=== PATIENT | female | born 1940 | race Caucasian/White ===

== ENCOUNTER 2016-08-04 15:51 | Outpatient (CLI) | payer MEDICARE, OTHER | END 2016-08-04 15:52 | disposition short-term general hospital (02) | LOC: EMS 15:51 | PROVIDERS: ATTEND Surgery | DX: R55 Syncope and collapse (principal); R19.5 Other fecal abnormalities; R53.1 Weakness | CPT/HCPCS: A0425; A0427; A0888 ==

== ENCOUNTER 2019-10-04 14:44 | Outpatient (CLI) | payer MEDICARE, OTHER | END 2019-10-04 14:45 | disposition home or self-care (01) | LOC: LAB 14:44 | PROVIDERS: ATTEND Internal Medicine Nephrology | DX: Z11.59 Encounter for screening for other viral diseases (principal) ==

== ENCOUNTER 2020-05-30 22:31 | Outpatient (CLI) | payer MEDICARE, OTHER | END 2020-05-30 23:59 | disposition short-term general hospital (02) | LOC: EMS 22:31 | DX: R06.02 Shortness of breath (principal) | CPT/HCPCS: A0425; A0429 ==

== ENCOUNTER 2020-12-12 23:31 | Outpatient (CLI) | payer MEDICARE, OTHER | END 2020-12-12 23:32 | disposition short-term general hospital (02) | LOC: EMS 23:31 | DX: R06.02 Shortness of breath (principal); R42 Dizziness and giddiness; I47.1 Supraventricular tachycardia | CPT/HCPCS: A0425; A0427 ==

== ENCOUNTER 2021-02-05 15:10 | Outpatient (CLI) | payer MEDICARE, OTHER | END 2021-02-05 15:11 | disposition critical access hospital (66) | LOC: EMS 15:10 | DX: M54.9 Dorsalgia, unspecified (principal); I47.1 Supraventricular tachycardia | CPT/HCPCS: A0425; A0427 ==

== ENCOUNTER 2021-02-05 15:25 | Emergency (ER) | payer MEDICARE, OTHER ==
--- NOTE | 2021-02-05 16:07 | XRAY Report ---
PROCEDURE: Chest 1 View X-Ray INDICATIONS: chest pain TECHNIQUE: One view of the chest was acquired. COMPARISON: 08/06/2011 FINDINGS: Surgical changes and devices: None. Lungs and pleura: No pleural effusions or pneumothorax. There are diffuse bilateral airspace opac ities likely chronic. Mediastinum: Mediastinal contours appear normal. Heart size is normal. The aorta is tortuous. The s tudy is rotated. Bones and chest wall: No suspicious bony lesions. Overlying soft tissues appear unremarkable. IMPRESSION: 1. No acute cardiopulmonary abnormality. 2. The study is rotated. Reviewed by: Francisco Abbott on 02/05/2021 4:06 PM [facility] Approved by: Francisco Abbott on 02/05/2021 4:06 PM [facility] Station ID: [id number]
--- NOTE | 2021-02-05 16:21 | ED Physician Documentation ---
History of Present Illness - Stated complaint Stated Complaint: SVT - Chief complaint Chief Complaint: Cardiac - History obtained from History obtained from: Patient, EMS - History of Present Illness Timing: Today - Additonal information Additional information: 80-year-old female with 3 times per week dialysis called medics with low back pain and was transported the hospital with a heart rate of 165 [address] route she was given adenosine and converted. She has recently been seen at [facility] where she was hospitalized for 11 days in an attempt to figure out why her back is hurting her so bad. 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 Review of Systems Constitutional: denies: Fever Nose: denies: Congestion Throat: denies: Sore throat Cardiac: reports: Palpitations. 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 HEENT: Tonsil/Adenoidectomy - Present Medications Home Medications: Ambulatory Orders Medication Instructions Recorded Confirmed Calcium Carbonate [Tums] 500 mg PO AC 10/12/12 10/12/12 Carvedilol 12.5 mg PO DAILY 10/12/12 10/12/12 Carvedilol 25 mg PO DAILY 10/12/12 10/12/12 Estrogens, Conjugated [Premarin] 1.25 mg PO DAILY 10/12/12 10/12/12 Folic Acid 3 mg PO DAILY 10/12/12 10/12/12 Furosemide [Lasix] 40 mg PO DAILY 10/12/12 10/12/12 Levothyroxine Sodium [Tirosint] 150 mcg PO DAILY 10/12/12 10/12/12 Lovastatin [Mevacor] 20 mg PO DAILY 10/12/12 10/12/12 Sevelamer Carbonate [Renvela] 800 mg PO AC 10/12/12 10/12/12 amLODIPine [Norvasc] 10 mg PO DAILY 10/12/12 10/12/12 oxyCODONE [Roxicodone] 5 mg PO Q6-8H PRN 10/12/12 10/12/12 - Allergies Allergies/Adverse Reactions: Allergies Allergy/AdvReac Type Severity Reaction Status Date / Time amoxicillin [Amoxicillin] Allergy Severe Edema Verified 10/12/12 08:35 amoxicillin trihydrate * Allergy Severe Edema Verified 10/12/12 08:34 [From Augmentin] potassium clavulanate * Allergy Unknown unknown Unverified 10/12/12 08:38 [From Augmentin] Sulfa (Sulfonamide Allergy Unknown unknown Unverified 10/12/12 08:38 Antibiotics) celecoxib [From Celebrex] AdvReac Severe Bleeding Verified 10/12/12 08:35 PD ED PE NORMAL - Vitals Vital signs reviewed: Yes (Normal) - General General: Alert and oriented X 3, No acute distress, Well developed/nourished - HEENT HEENT: Atraumatic, PERRL, EOMI - Neck Neck: Supple, no meningeal sign, No bony TTP - Cardiac Cardiac: RRR, No murmur - Respiratory Respiratory: No respiratory distress, Clear bilaterally - Abdomen Abdomen: Soft, Non tender - Back Back: No CVA TTP, Other (The back is examined there is no evidence of erythema the spine is palpated directly in the area where she has had her biopsy was not specifically tender. She does have some mild tenderness across the lower lumbar spine all the way across. Not midline bony tenderness.) - Derm Derm: Normal color, Warm and dry, No rash - Extremities Extremities: Other (Both feet are bandaged from recent amputation.) - Neuro Neuro: Alert and oriented X 3, water tender 2-12 intact, No motor deficit, No sensory deficit, Normal speech Eye Opening: Spontaneous Motor: Obeys Commands Verbal: Oriented GCS Score: 15 - Psych Psych: Normal mood, Normal affect Results - Vitals Vitals: Vital Signs - 24 hr 02/05/21 02/05/21 02/05/21 15:25 15:34 17:50 Heart Rate 97 96 93 Respiratory 97 H 18 18 Rate Blood Pressure 114/64 114/64 128/64 O2 Saturation 100 96 Oxygen O2 Source Room air - EKG (time done) 1531 Rate: Rate (enter#) (97) Intervals: Prolonged QT, Wide QRS (borderline) Ischemia: Normal ST segments Compare to prior EKG: Old EKG unavailable Computer interpretation: Disagree with computer (I do not see ST elevation in the inferior leads) - Labs Labs: Laboratory Tests 02/05/21 02/05/21 02/05/21 16:15 16:15 16:15 WBC 12.8 H RBC 3.88 L Hgb 11.3 L Hct 36.4 L MCV 93.8 MCH 29.1 MCHC 31.0 L RDW 16.2 H Plt Count 392 MPV 9.8 Neut # (Auto) 11.0 H Lymph # (Auto) 0.6 L [place] # (Auto) 0.9 Eos # (Auto) 0.1 Baso # (Auto) 0.1 Absolute Nucleated RBC 0.00 Nucleated RBC % 0.0 Sodium 142 Potassium 4.3 Chloride 98 L Carbon Dioxide 29 Anion Gap 15.0 H BUN 25 H Creatinine 3.3 H Estimated GFR (MDRD) 13 L Glucose 135 H Calcium 9.1 Total Bilirubin 0.4 AST 26 ALT 13 Alkaline Phosphatase 188 H Troponin I High Sens 22.2 H* Total Protein 7.2 Albumin 3.1 L Globulin 4.1 Albumin/Globulin Ratio 0.8 L Lipase 34 - Rads (name of study) chest Radiology: Prelim report reviewed (Impression: 1. No acute cardiopulmonary abnormality. The study is rotated.), EMP read indepedently, See rad report lumbar spine Radiology: Prelim report reviewed (Impression: Essentially nondiagnostic exa mination secondary to body habitus, decreased bone mineralization and discogenic changes.), EMP read indepedently, See rad report PD MEDICAL DECISION MAKING - ED course Complexity details: reviewed results, re-evaluated patient, considered differential, d/w patient ED course: 80-year-old patient on hemodialysis for the past 12 years has had an episode of SVT today which presented as lightheadedness when she attempted to get up to walk. She felt that she would collapse. She had an increase in her back pain associated with this. She felt that this may be related to a new pain medication she has been taking and she had taken her first dose today. This occurred some 6 hours after her dose. She was converted in the field with 6 mg of adenosine and feels back to normal. She continues to have back pain. Departure - Departure Disposition: 01 Home, Self Care Clinical Impression: SVT (supraventricular tachycardia) Condition: Stable Instructions: ED Tachycardia Pat PSVT Follow-Up: Lucila Pereira MD [Primary Care Provider] - Comments: Barbra, today you had a supraventricular tachycardia or SVT. This is a very rapid heart rate that can cause problems if left untreated. If you develop the symptoms again with feeling of lightheadedness and near syncope call the ambulance. We were unable to image your back adequately today and my recommendation is that if you have increased back pain or or development of new symptoms to follow-up with your doctors at [facility]. If you feel that your SVT was a result of this new medication return to using your oxycodone.
[2021-02-05 16:22] LABS: BASOPHILS # (AUTO) 0.1 10^3/uL (0.0-0.1); BASOPHILS % (AUTO) 0.9 %; EOSINOPHILS # (AUTO) 0.1 10^3/uL (0.0-0.7); EOSINOPHILS % (AUTO) 0.7 %; HCT - HEMATOCRIT 36.4 % (37.0-47.0); HGB - HEMOGLOBIN 11.3 g/dL (12.0-16.0); LYMPHOCYTES # (AUTO) 0.6 10^3/uL (1.5-3.5); MEAN CORPUSCULAR HEMOGLOBIN 29.1 pg (27.0-31.0); MEAN CORPUSCULAR VOLUME 93.8 fL (81.0-99.0); MEAN PLATELET VOLUME 9.8 fL (7.9-10.8); MONOCYTES # (AUTO) 0.9 10^3/uL (0.0-1.0); MONOCYTES % (AUTO) 6.9 %; PLT - PLATELET COUNT 392 10^3/uL (130-450); RED BLOOD COUNT 3.88 10^6/uL (4.20-5.40); RED CELL DISTRIBUTION WIDTH 16.2 % (12.0-15.0); WHITE BLOOD COUNT 12.8 x10^3/uL (4.8-10.8)
[2021-02-05 16:36] LABS: ALBUMIN 3.1 g/dL (3.2-5.5); ALBUMIN/GLOBULIN RATIO 0.8 (1.0-2.2); BILIRUBIN,TOTAL 0.4 mg/dL (0.2-1.0); CALCIUM 9.1 mg/dL (8.5-10.3); CREATININE 3.3 mg/dL (0.4-1.0); POTASSIUM 4.3 mmol/L (3.5-5.0); TOTAL PROTEIN 7.2 g/dL (6.7-8.2)
[2021-02-05 17:51] VITALS: BP 128/64
--- NOTE | 2021-02-05 18:55 | XRAY Report ---
PROCEDURE: Lumbar Spine 2 View INDICATIONS: increased low back pain severe TECHNIQUE: 2 views of the lumbar spine were acquired. COMPARISON: None. FINDINGS: Spine not well visualized secondary to body habitus and diffuse osteopenia. Diffuse, severe thoracic and lumbar spondylosis and facet arthropathy. Cannot exclude fracture. IMPRESSION: Essentially nondiagnostic examination secondary to body habitus, decreased bone mineralization and di scogenic changes. Reviewed by: Alfonso Georges MD on 02/05/2021 6:54 PM PST Approved by: Alfonso Georges MD on 02/05/2021 6:54 PM PST Station ID: [id number]
== END 2021-02-05 19:25 | disposition home or self-care (01) ==
LOC: EDUNIT# → ED 15:25
DX: I47.1 Supraventricular tachycardia (principal); M54.50 Low back pain, unspecified; I10 Essential (primary) hypertension; E03.9 Hypothyroidism, unspecified; N28.9 Disorder of kidney and ureter, unspecified; F40.240 Claustrophobia; Z79.899 Other long term (current) drug therapy; Z89.429 Acquired absence of other toe(s), unspecified side
CPT/HCPCS: 36415; 80053; 83690; 84484; 85025; 93005; 99284

== ENCOUNTER 2021-07-14 20:54 | Outpatient (CLI) | payer MEDICARE, OTHER | END 2021-07-14 20:55 | disposition short-term general hospital (02) | LOC: EMS 20:54 | DX: R58 Hemorrhage, not elsewhere classified (principal); L89.319 Pressure ulcer of right buttock, unspecified stage; R42 Dizziness and giddiness; Z79.01 Long term (current) use of anticoagulants | CPT/HCPCS: A0425; A0429 ==

== ENCOUNTER 2021-08-08 12:24 | Outpatient (CLI) | payer MEDICARE, OTHER | END 2021-08-08 12:25 | disposition EMS.NT | LOC: EMS 12:24 | DX: R52 Pain, unspecified (principal) ==

== ENCOUNTER 2021-09-10 16:38 | Outpatient (CLI) | payer MEDICARE, OTHER | END 2021-09-10 16:39 | disposition critical access hospital (66) | LOC: EMS 16:38 | DX: R53.1 Weakness (principal); R29.6 Repeated falls; Z59.89 Other problems related to housing and economic circumstances | CPT/HCPCS: A0425; A0429 ==

== ENCOUNTER 2021-09-10 16:55 | Emergency (ER) | payer MEDICARE, OTHER ==
[2021-09-10 17:25] LABS: BASOPHILS # (AUTO) 0.1 10^3/uL (0.0-0.1); BASOPHILS % (AUTO) 0.8 %; EOSINOPHILS # (AUTO) 0.1 10^3/uL (0.0-0.7); EOSINOPHILS % (AUTO) 0.7 %; HCT - HEMATOCRIT 29.9 % (37.0-47.0); HGB - HEMOGLOBIN 10.1 g/dL (12.0-16.0); LYMPHOCYTES # (AUTO) 0.8 10^3/uL (1.5-3.5); MEAN CORPUSCULAR HEMOGLOBIN 32.9 pg (27.0-31.0); MEAN CORPUSCULAR HGB CONC 33.8 g/dL (32.0-36.0); MEAN CORPUSCULAR VOLUME 97.4 fL (81.0-99.0); MEAN PLATELET VOLUME 9.1 fL (7.9-10.8); MONOCYTES # (AUTO) 0.8 10^3/uL (0.0-1.0); MONOCYTES % (AUTO) 7.8 %; NEUTROPHILS # (AUTO) 8.4 10^3/uL (1.5-6.6); NEUTROPHILS % (AUTO) 82.4 %; PLT - PLATELET COUNT 455 10^3/uL (130-450); RED BLOOD COUNT 3.07 10^6/uL (4.20-5.40); RED CELL DISTRIBUTION WIDTH 15.9 % (12.0-15.0); WHITE BLOOD COUNT 10.2 x10^3/uL (4.8-10.8)
[2021-09-10 17:37] LABS: ALBUMIN 2.2 g/dL (3.2-5.5); ALBUMIN/GLOBULIN RATIO 0.6 (1.0-2.2); BILIRUBIN,TOTAL 0.5 mg/dL (0.2-1.0); CALCIUM 8.4 mg/dL (8.5-10.3); CREATININE 2.7 mg/dL (0.4-1.0); POTASSIUM 2.9 mmol/L (3.5-5.0); TOTAL PROTEIN 6.2 g/dL (6.7-8.2)
--- NOTE | 2021-09-10 17:50 | XRAY Report ---
PROCEDURE: Chest 1 View X-Ray INDICATIONS: GEN WEAKNESS, SYNCOPE TECHNIQUE: One view of the chest was acquired. COMPARISON: Chest radiographs 02/05/2021 FINDINGS: Surgical changes and devices: None. Lungs and pleura: No pleural effusions or pneumothorax. Lungs are clear. Mediastinum: Mediastinal contours appear normal. Heart size is normal. Bones and chest wall: No suspicious bony lesions. Overlying soft tissues appear unremarkable. Dawna re degenerative changes are seen in the shoulders. IMPRESSION: No acute cardiopulmonary abnormality. Reviewed by: Nabil Parks MD on 09/10/2021 5:48 PM PDT Approved by: Nabil Parks MD on 09/10/2021 5:48 PM PDT Station ID: [id number]
[2021-09-10] MEDS ORDERED: cefTRIAXone 1 GM in SODIUM CHLORIDE 0.9% MINIBAG 100 ML IV STA (17:53)
[2021-09-10 18:13] LABS: BILIRUBIN,URINE NEGATIVE (NEGATIVE); GLUCOSE, URINE (UA) NEGATIVE (NEGATIVE); KETONES,URINE (UA) NEGATIVE (NEGATIVE); LEUKOCYTE ESTERASE, URINE SMALL (NEGATIVE); NITRITE,URINE NEGATIVE (NEGATIVE); OCCULT BLOOD,URINE NEGATIVE (NEGATIVE); PROTEIN,URINE 30 mg/dL (NEGATIVE); UROBILINOGEN,URINE 0.2 (NORMAL) E.U./dL (NORMAL)
[2021-09-10 18:15] LABS: CLARITY,URINE CLEAR (CLEAR)
--- NOTE | 2021-09-10 18:22 | CT Report ---
PROCEDURE: HEAD WO INDICATIONS: GLF ON ELIQUIS TECHNIQUE: Noncontrast 4.5 mm thick angled axial sections acquired from the foramen magnum to the vertex. For r adiation dose reduction, the following was used: automated exposure control, adjustment of mA and/or kV according to patient size. COMPARISON: None. FINDINGS: Image quality: Excellent. CSF spaces: Basal cisterns are patent. No extra-axial fluid collections. Ventricles are normal in size and shape. Brain: No midline shift. No intracranial masses or hemorrhage. Mild scattered chronic microvascular ischemic changes. Mild sulcal and ventricular prominence is consistent with diffuse age-related cere bral volume loss. Skull and face: Calvarium and visualized facial bones are intact, without suspicious lesions. Sinuses: Mild mucosal thickening in maxillary sinus. The remaining visualized sinuses and mastoids a re clear. IMPRESSION: No acute intracranial abnormality. Reviewed by: Nabil Parks MD on 09/10/2021 6:20 PM PDT Approved by: Nabil Parks MD on 09/10/2021 6:20 PM PDT Station ID: [id number]
[2021-09-10 18:24] LABS: BACTERIA,URINE Few /HPF (None Seen); EPITHELIAL CELLS,UR RARE Transitional /HPF (<= Few); RBC,URINE 0-5 /HPF (0-5); SQUAMOUS EPITHELIAL CELL,UR FEW Squamous (<= Few)
[2021-09-10] MEDS ORDERED: POTASSIUM CHLORIDE 20 MEQ TABLET PO ONE (18:24)
[2021-09-10 18:31] LABS: INR 1.4 (0.8-1.2); PT - PROTHROMBIN TIME 15.4 secs (9.9-12.6)
[2021-09-10 18:39] LABS: PARTIAL THROMBOPLASTIN TIME 37.1 secs (24.9-33.3)
[2021-09-10] MEDS ORDERED: GLYCERIN ADULT SUPP PR STA (18:41)
--- NOTE | 2021-09-10 19:04 | ED Physician Documentation ---
History of Present Illness - Stated complaint Stated Complaint: GLF - Chief complaint Chief Complaint: Neuro - History obtained from History obtained from: Patient - History of Present Illness Timing: Prior to arrival - Additonal information Additional information: 81-year-old female with history of ESRD on Tuesday dialysis, history of Eliquis use, history of chronic foot ulcers being treated by home health care presents by EMS from home for ground-level fall that occurred just prior to arrival. Per EMS the patient has gradually grown more weak over the last few weeks. She was attempting to walk to the bathroom when her legs gave out and she sank to the ground. She was unable to get off the floor and EMS was called. On arrival patient states she feels weak all over. Last dialysis session was yesterday. She states that she cannot walk EMS reported that the home was filthy and living conditions were foul. Review of Systems Constitutional: denies: Fever, Chills, Myalgias, Fatigue, Weight Loss, Sweats, Reviewed and negative, Other Eyes: denies: Loss of vision, Decreased vision, Photophobia, Discharge, Irritation, Reviewed and negative, Other Ears: denies: Loss of hearing, Ear pain, Drainage/discharge, Tinnitus/ringing, Foreign body, Reviewed and negative, Other Nose: denies: Rhinorrhea / runny nose, Congestion, Epistaxis, Sinus pressure / pain, Foreign Body, Reviewed and negative, Other Throat: denies: Dental pain / toothache, Oral lesions / sores, Sore throat, Swollen tonsils, Swallowed foreign body, Reviewed and negative, Other Cardiac: denies: Chest pain / pressure, Palpitations, Pedal edema, Calf pain, Reviewed and negative, Other Respiratory: denies: Dyspnea, Cough, Hemoptysis, Wheezing, Reviewed and negative, Other GI: denies: Abdominal Pain, Abdominal Swelling, Nausea, Vomiting, Constipation, Diarrhea, Hematemesis, Bloody / black stool, Reviewed and negative, Other : denies: Dysuria, Frequency, Hesitancy, Unable to Void, Incontinent, Hematuria, Discharge, LMP, Vaginal bleeding, Irregular menses, Missed period, Now EGA, Control, Hysterectomy, Testicular pain, Testicular mass, Ureña Problem, Reviewed and negative, Other Skin: reports: Rash (Chronic) Neurologic: reports: Generalized weakness. denies: Syncope, Seizure, Confused Psychiatric: denies: Depressed, Suicidal, Homicidal, Hallucinations, Delusions, Anxiety, Insomnia, Reviewed and negative, Other Endocrine: denies: Polydypsia, Polyuria, Polyphagia, Weight loss, Weight gain, Easy bruising / bleeding, Swollen lymph nodes, Reviewed and negative, Other Immunocompromised: denies: Immunocompromised, HIV/AIDS, Asplenic, Chemotherapy, Transplant, Reviewed and negative, Other PD PAST MEDICAL HISTORY - Past Medical History Cardiovascular: Hypertension Respiratory: None Neuro: None Endocrine/Autoimmune: HyPOthyroidism GI: Diverticulitis 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 SPECIALIST: 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 : Renal insuffiency HEENT: None Psych: Claustrophobia Musculoskeletal: Osteoarthritis Derm: None - Past Surgical History Past Surgical History: Yes General: Appendectomy Ortho: Rotator cuff repair, Carpal Tunnel surgery /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 HEENT: Tonsil/Adenoidectomy - Present Medications Home Medications: Ambulatory Orders Medication Instructions Recorded Confirmed Calcium Carbonate [Tums] 500 mg PO AC 10/12/12 10/12/12 Carvedilol 12.5 mg PO DAILY 10/12/12 10/12/12 Carvedilol 25 mg PO DAILY 10/12/12 10/12/12 Estrogens, Conjugated [Premarin] 1.25 mg PO DAILY 10/12/12 10/12/12 Folic Acid 3 mg PO DAILY 10/12/12 10/12/12 Furosemide [Lasix] 40 mg PO DAILY 10/12/12 10/12/12 Levothyroxine Sodium [Tirosint] 150 mcg PO DAILY 10/12/12 10/12/12 Lovastatin [Mevacor] 20 mg PO DAILY 10/12/12 10/12/12 Sevelamer Carbonate [Renvela] 800 mg PO AC 10/12/12 10/12/12 amLODIPine [Norvasc] 10 mg PO DAILY 10/12/12 10/12/12 oxyCODONE [Roxicodone] 5 mg PO Q6-8H PRN 10/12/12 10/12/12 - Allergies Allergies/Adverse Reactions: Allergies Allergy/AdvReac Type Severity Reaction Status Date / Time amoxicillin [Amoxicillin] Allergy Severe Edema Verified 09/10/21 17:18 amoxicillin trihydrate * Allergy Severe Edema Verified 09/10/21 17:18 [From Augmentin] potassium clavulanate * Allergy Unknown unknown Unverified 09/10/21 17:18 [From Augmentin] Sulfa (Sulfonamide Allergy Unknown unknown Unverified 09/10/21 17:18 Antibiotics) celecoxib [From Celebrex] AdvReac Severe Bleeding Verified 09/10/21 17:18 - Social History Does the pt smoke?: No Smoking Status: Never smoker Does the pt drink ETOH?: No Does the pt have substance abuse?: No - Immunizations Immunizations are current?: Yes - POLST Patient has POLST: No PD ED PE NORMAL - General General: Alert and oriented X 3, No acute distress, Other (DEBILITATED, FRAIL, CHRONICALLY UNWELL) - HEENT HEENT: No: Atraumatic, PERRL, EOMI, Ears normal, Moist mucous membranes, Pharynx benign, Dentition benign, Other - Neck Neck: No: Supple, no meningeal sign, No bony TTP, No adenopathy, Thyroid normal, No JVD, No bruit, C-Spine cleared by NEXUS criteria, Other - Cardiac Cardiac: RRR, No gallop - Respiratory Respiratory: No: No respiratory distress, Clear bilaterally, Other - Abdomen Abdomen: Soft, Non tender, Non distended - Female Female : Deferred - Rectal Rectal: Deferred - Derm Derm: Normal color, Warm and dry, Other (fungal rash under pannus) - Extremities Extremities: No tenderness to palpate, No calf tenderness / cord, Other (chronic foot wounds, gangrenous R great toe) - Neuro Neuro: Alert and oriented 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, 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1 Baso # (Auto) 0.1 Absolute Nucleated RBC 0.00 Nucleated RBC % 0.0 PT INR APTT Sodium 137 Potassium 2.9 L Chloride 96 L Carbon Dioxide 29 Anion Gap 12.0 BUN 18 Creatinine 2.7 H Estimated GFR (MDRD) 17 L Glucose 93 Lactic Acid Calcium 8.4 L Total Bilirubin 0.5 AST 15 ALT 10 Alkaline Phosphatase 145 H Total Creatine Kinase 30 Troponin I High Sens 21.4 H* Total Protein 6.2 L Albumin 2.2 L Globulin 4.0 Albumin/Globulin Ratio 0.6 L Urine Color Urine Clarity Urine pH Ur Specific [place] Urine Protein Urine Glucose (UA) Urine Ketones Urine Occult Blood Urine Nitrite Urine Bilirubin Urine Urobilinogen Ur Leukocyte Esterase Urine RBC Urine WBC Ur Epithelial Cells Ur Squamous Epith Cells Urine Bacteria Ur Microscopic Review Urine Culture Comments 09/10/21 09/10/21 09/10/21 18:01 18:20 18:20 WBC RBC Hgb Hct MCV MCH MCHC RDW Plt Count MPV Neut # (Auto) Lymph # (Auto) [place] # (Auto) Eos # (Auto) Baso # (Auto) Absolute Nucleated RBC Nucleated RBC % PT 15.4 H INR 1.4 H APTT 37.1 H Sodium Potassium Chloride Carbon Dioxide Anion Gap BUN Creatinine Estimated GFR (MDRD) Glucose Lactic Acid 1.6 Calcium Total Bilirubin AST ALT Alkaline Phosphatase Total Creatine Kinase Troponin I High Sens Total Protein Albumin Globulin Albumin/Globulin Ratio Urine Color YELLOW Urine Clarity CLEAR Urine pH 6.0 Ur Specific [place] 1.010 Urine Protein 30 H Urine Glucose (UA) NEGATIVE Urine Ketones NEGATIVE Urine Occult Blood NEGATIVE Urine Nitrite NEGATIVE Urine Bilirubin NEGATIVE Urine Urobilinogen 0.2 (NORMAL) Ur Leukocyte Esterase SMALL H Urine RBC 0-5 Urine WBC 11-25 H Ur Epithelial Cells RARE Transitional Ur Squamous Epith Cells FEW Squamous Urine Bacteria Few Ur Microscopic Review INDICATED Urine Culture Comments INDICATED PD MEDICAL DECISION MAKING - ED course ED course: Patient presenting with profound weakness and a ground-level fall on Eliquis. No focal neurologic deficit. Patient is recording chronic pain in her feet. Work-up significant for potassium 2.9, repleted. Leukocyte Estrace on urinalysis, given a dose of Rocephin. Mild elevations in troponins, however patient denies chest pain, has no ischemic findings on EKG, and is a dialysis patient. Unsafe to discharge patient home, however patient is also a dialysis patient and we do not have dialysis capabilities at our facility. Reached out to arrange transfer.
[2021-09-10] MEDS ORDERED: ACETAMINOPHEN 325 MG TABLET PO STA (19:34)
[2021-09-10] MEDS ORDERED: oxyCODONE 5 MG TABLET PO STA ×2 (19:34→19:47)
[2021-09-10] MEDS ORDERED: LIDOCAINE 1% 2 ML VIAL MC ONE (19:46)
[2021-09-10] MEDS ORDERED: cefTRIAXone 1 GM VIAL IM STA (19:46)
[2021-09-10 19:57] LABS: MAGNESIUM 1.9 mg/dL (1.7-2.8)
[2021-09-10] MEDS ORDERED: HYDROmorphone 0.5 MG/0.5 ML SYRINGE IM STA (20:33)
[2021-09-10] MEDS ORDERED: DOXYCYCLINE 100 MG TABLET PO STA (20:38)
--- NOTE | 2021-09-10 23:01 | ED Physician Documentation ---
ED Addendum - Addendum Addendum: 09/10/21 22:57The patient care was transferred to nh on change of shift. Report was of progressive weakness over the last 2 to 3 weeks and more so the last few days. She was unable to walk with her usual walker and fell today at home with superficial laceration of the skin tear on the left forearm. Denied head injury. She is having still feeling of general weakness. No focal weakness noted. No trouble speaking or vision loss. She had had dialysis yesterday without problems. She typically gets brought there by wheelchair with paratransit. She has noticed skin sores on her hands over the last several days with local redness and swelling but no purulence. Denies itching. Attempt was made to ambulate her here with a walker and she was unable to go the 15 feet from bed to bathroom without nearly falling and requiring assistance. At this point she does not seem safe for discharge as yet. She can have repletion of her potassium as this may be causing some effect. Otherwise consideration would be further evaluation of the general weakness. Surrounding nearby hospitals do not have any beds available. In particular [facility] where she gets dialysis was contacted did not have any beds available. At this point we we will have the patient in the ER overnight and see if there are any beds opening tomorrow. Consideration of further testing might include MRI brain to evaluate for stroke type causes though it is not unifocal.
[2021-09-11] MEDS ORDERED: oxyCODONE 5 MG TABLET PO PRN (00:11)
[2021-09-11 07:28] LABS: ALBUMIN 2.5 g/dL (3.2-5.5); ALBUMIN/GLOBULIN RATIO 0.6 (1.0-2.2); ALKALINE PHOSPHATASE 151 IU/L (42-121); ALT ALANINE AMINOTRANSFERASE < 10 IU/L (10-60); AST ASPARTATE AMINOTRANSFERASE 17 IU/L (10-42); BILIRUBIN,TOTAL 0.6 mg/dL (0.2-1.0); BUN - BLOOD UREA NITROGEN 24 mg/dL (6-20); CALCIUM 8.5 mg/dL (8.5-10.3); CARBON DIOXIDE - CO2 28 mmol/L (21-32); CHLORIDE 96 mmol/L (101-111); CREATININE 3.4 mg/dL (0.4-1.0); GFR - MDRD 13 (>89); GLUCOSE 80 mg/dL (70-100); LIPASE 28 U/L (22-51); POTASSIUM 3.7 mmol/L (3.5-5.0); SODIUM 139 mmol/L (135-145); TOTAL PROTEIN 6.5 g/dL (6.7-8.2)
[2021-09-11] MEDS ORDERED: oxyCODONE 5 MG TABLET PO STA (07:41)
[2021-09-11] MEDS ORDERED: ACETAMINOPHEN 500 MG TABLET PO STA (07:41)
--- NOTE | 2021-09-11 07:43 | ED Physician Documentation ---
ED Addendum - Addendum Addendum: 09/11/21 07:[address] Burris at shift change. Briefly this is an 81-year-old woman who presented last night after a fall at home and generalized weakness. Complaints this morning include edema, some painful lesions on her right hand and generalized weakness. Her potassium is much better, having normalized overnight. Would be reasonable to admit her, but every hospital that does dialysis is full. She is due today. 09/11/21 09:18 We dressed the sores on the right hand and redressed her wound on the left forearm from the fall. Gave her regular pain medication and tried to get her up, but she could not even walk 1 step with a walker. She was only able to lean over on the walker because she was so weak. Given this she will be waitlisted at every local facility that has dialysis capability. 09/11/21 12:19 Case discussed by phone with Dr. Branch at [facility] who accepts pending bed availability which may be several more hours. 09/11/21 14:40 Notified of bed availability at [facility] at 2:40 PM. [place] and P[facility] forms completed. She is stable for transport. Disposition: Transferred to [facility] for higher level of care Condition: Stable Diagnoses: 1. ESRD 2. UTI 3. Generalized weakness
[2021-09-11] MEDS ORDERED: amLODIPine 5 MG TABLET PO ONE (08:00)
[2021-09-11] MEDS: ACETAMINOPHEN 500 MG TABLET PO SCH ×3 (08:28→16:40)
[2021-09-11] MEDS ORDERED: DOXYCYCLINE 100 MG TABLET PO SCH (09:00)
[2021-09-11] MEDS ORDERED: APIXABAN 5 MG TABLET PO SCH (09:00)
[2021-09-11 11:12] LABS: B. PARAPERTUSSIS- RESP PCR PAN NOT DETECTED; B. PERTUSSIS- RESP PCR PANEL NOT DETECTED; C. PNEUMONIAE- RESP PCR PANEL NOT DETECTED; CORONAVIRUS 229E-RESP PCR NOT DETECTED; CORONAVIRUS HKU1-RESP PCR NOT DETECTED; CORONAVIRUS NL63-RESP PCR NOT DETECTED; CORONAVIRUS OC43-RESP PCR NOT DETECTED; HUMAN METAPNEUMOVIRUS NOT DETECTED; INFLUENZA A- RESP PCR PANEL NOT DETECTED; INFLUENZA B - RESP PCR PANEL NOT DETECTED; M. PNEUMONIAE- RESP PCR PANEL NOT DETECTED; PARAINFLUENZA VIRUS 1 NOT DETECTED; PARAINFLUENZA VIRUS 2 NOT DETECTED; PARAINFLUENZA VIRUS 3 NOT DETECTED; PARAINFLUENZA VIRUS 4 NOT DETECTED; RHINOVIRUS/ENTEROVIRUS NOT DETECTED; RSV- RESP PCR PANEL NOT DETECTED; SARS-CoV-2 -RESP PCR PANEL NOT DETECTED
[2021-09-11] MEDS ORDERED: CALCIUM CARBONATE CHEW 500 MG TABLET PO STA (13:13)
[2021-09-11 15:11] VITALS: BP 123/68
== END 2021-09-11 17:25 | disposition short-term general hospital (02) ==
LOC: EDUNIT# → ED 16:55
DX: I12.0 Hypertensive chronic kidney disease with stage 5 chronic kidney disease or end stage renal disease (principal); N18.6 End stage renal disease; Z99.2 Dependence on renal dialysis; N39.0 Urinary tract infection, site not specified; Z20.822 Contact with and (suspected) exposure to COVID-19
CPT/HCPCS: 36415; 70450; 71045; 80053; 81001; 82550; 83605; 83690; 83735; 84484; 85025; 85610; 85730; 87040; 87086; 87633; 93005; 96372; 99283; 99285; A9270; J1170; 81003

== ENCOUNTER → 2022-03-10 | Outpatient (CLI) | payer MEDICARE, OTHER | END | disposition short-term general hospital (02) | LOC: EMS 12:37 | DX: T82.898A Other specified complication of vascular prosthetic devices, implants and grafts, initial encounter (principal); T82.848A Pain due to vascular prosthetic devices, implants and grafts, initial encounter; Z99.2 Dependence on renal dialysis | CPT/HCPCS: A0425; A0429 ==

== ENCOUNTER 2022-03-12 09:42 | Outpatient (CLI) | payer MEDICARE, OTHER | END 2022-03-12 09:43 | disposition short-term general hospital (02) | LOC: EMS 09:42 | DX: R06.00 Dyspnea, unspecified (principal); R53.1 Weakness; M79.601 Pain in right arm; Z99.2 Dependence on renal dialysis | CPT/HCPCS: A0425; A0427; A0888 ==